=== PATIENT | male | born 1945 | race Caucasian/White ===

== ENCOUNTER → 2018-04-08 14:35 | Outpatient (CLI) | payer MEDICARE | END | disposition home or self-care (01) | LOC: D.CT 13:00 | DX: I71.4 Abdominal aortic aneurysm, without rupture (principal) ==

== ENCOUNTER → 2018-09-25 14:02 | Outpatient (CLI) | payer MEDICARE | END | disposition home or self-care (01) | LOC: D.CT 14:02 | PROVIDERS: ATTEND Internal Medicine Cardiovascular Disease | DX: I71.4 Abdominal aortic aneurysm, without rupture (principal) ==

== ENCOUNTER 2018-10-07 12:59 | Inpatient (IN) | payer MEDICARE ==
[~2018-10-07] VITALS: Ht 180.3 cm; Wt 86.2 kg
--- NOTE | ~2018-10-07 | OP ---
PATIENT NAME: CRISTINA HOOD MEDICAL RECORD: [id number] :47 LOCATION:D.CVI D.CV04 ADMISSION DATE:10/09/18 SURGEON: J CARLOS WANG MD DATE OF OPERATION: 10/09/2018 ADDENDUM Retrograde left external iliac artery was performed after the deployment of the iCAST stents with an excellent result. Attention was then turned towards the right common femoral, superficial femoral, and profunda femoral arteries. The artery was opened longitudinally and underwent endarterectomy sharply. Artery underwent extensive debridement and irrigation. Utilizing a CorMatrix vascular patch and running 5-0 Prolene suture, the arteriotomy was closed with an angioplasty technique. All maneuvers to remove trapped air were performed. The clamps removed sequentially and there was excellent flow distally. The wounds were irrigated with copious amounts of antibiotic solution and normal saline. The patient's final aortogram demonstrated good flow through the graft with no endoleak and good flow through the stents as well. The patient was then given a calculated dose of protamine to reverse the heparin, given as the first sheath was placed. Hemostasis was achieved. Wounds were irrigated with copious amounts of antibiotic solution and normal saline. Instrument count and sponge counts were correct times 2. Wound was closed in layers utilizing 2-0 Vicryl on deep subcutaneous tissue, 3-0 Vicryl on superficial subcutaneous tissue and skin approximated with 5-0 subcuticular Monocryl. Sterile dressings were applied. The patient tolerated the procedure well and was transferred to cardiovascular recovery in stable condition. TRANSINT:[id number] Voice Confirmation ID: [id number] DOCUMENT ID: [id number] J CARLOS WANG MD CC: [id number] DICTATION DATE: 10/09/18 1518 MONITORING AND EVALUATION ADVISOR: 10/09/18 1527 ADM IN [facility] [facility] [id number] [place] [address]
--- NOTE | ~2018-10-07 | OP ---
PATIENT NAME: CRISTINA HOOD MEDICAL RECORD: [id number] :46 LOCATION:D.CVI D.CV04 ADMISSION DATE:10/09/18 SURGEON: YIFAN WANG MD DATE OF OPERATION: 10/09/2018 SURGEON: Yifan Wang MD DRYWALL INSTALLER: Derek. ANESTHESIA: General endotracheal, Dr. Reyes. OPERATION PERFORMED: 1. Open exposure right common femoral and superficial profunda femoral arteries, 87844. 2. Open iliac exposure left, 66389. 3. Endovascular repair with deployment of an aortobiiliac graft, 72750. 4. Extension prosthesis, left iliac beyond the target zone, +80061. 5. Right common femoral, superficial femoral endarterectomy with patch angioplasty, 16837. PREOPERATIVE DIAGNOSIS: 1. Bilaterally with Peng stage III claudication. 2. Saccular abdominal aortic aneurysm. POSTOPERATIVE DIAGNOSIS: 1. 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 2. Stenosis of the right external iliac artery and common iliac artery. 3. Severe stenosis proximal takeoff of the superficial femoral artery. INDICATION FOR OPERATION: Severe atherosclerosis lower extremities with life limiting claudication and abdominal aortic aneurysm. Severe claudication of lower extremities bilaterally with saccular abdominal aortic aneurysm. FINDINGS OF THE OPERATION: 1. Saccular abdominal aortic aneurysm. 2. 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 3. Severe stenosis of the right external iliac artery and common iliac artery. 4. Severe stenosis takeoff of the superficial femoral artery. FLUOROSCOPY TIME: 14 minutes 58 seconds. CONTRAST: 90 cc. ESTIMATED BLOOD LOSS: Less than 150 cc. The endarterectomy patch was a CorMatrix. Dr. Reed participated in the entire procedure. He participated in exposure of the right common femoral artery, profunda femoral artery, and superficial femoral artery. He participated in exposure of the left external iliac artery and common femoral artery. He also participated in the cannulation and crossing of the left totally occluded external iliac artery. He participated in the deployment of the aortobiiliac stent as well as extension device on the left. He also participated in the right common femoral and superficial endarterectomy with patch angioplasty. After informed consent, adequate preoperative OPERATIVE REPORT [id number] CRISTINA HOOD medication evaluation, the patient was brought to the operating room, placed on the table in supine position. After induction of general endotracheal anesthesia and application of appropriate monitoring devices, the patient was prepped and draped in a sterile field, utilizing Betadine scrub, alcohol, and Betadine solution. Betadine-impregnated drape was also used. Attempts were made to access the left common femoral artery with ultrasound and percutaneous technique and this failed. Therefore, the left external iliac and common femoral artery were exposed and surrounded with vessel loops. Attention was then turned toward the right groin and a curvilinear incision was made over the femoral artery. Dissection carried down to the fascia. The external iliac artery, common femoral artery, profunda femoral artery, and superficial femoral arteries were dissected free of surrounding structures and encircled with vessel loops. The left external iliac artery was accessed with a micropuncture and a microwire placed in the external iliac artery followed by a 4-Kenyan sheath exchange was made for a 6-Kenyan sheath and an arteriogram performed demonstrated the chronic total occlusion of the left external iliac artery, which was chronic. The right common femoral artery was then incised longitudinally with the clamps and placement of a 7-Kenyan sheath. The right iliac and aorta were cannulated with a stiff wire. Attention was turned toward the left and using a 0.014 Regalia wire, the chronic total occlusion was crossed and exchange made for a stiff wire with 0.035 Quick-Cross. Exchange was made for a stiff wire and a 7 x 80 balloon was placed across the area of chronic total occlusion in the external iliac artery as well as the common iliac artery. On the right, a 4 x 40 balloon was placed. The balloons were inflated, and held for 1 minute. The right side required another inflation at the junction of the hypogastric and external iliac artery. A snare catheter was placed in the left external iliac artery and 0.035 Quick-Cross placed over the wire inside of the snare catheter. Snare catheter was then manipulated to the distal aorta and a snare placed through the guiding catheter. Attention was then turned towards the right. The endovascular graft was prepared. The Endologix aortobiiliac graft was then loaded on the wire. The contralateral wire was placed through this large introducer and snared the contralateral wire was pulled through the 7-Kenyan sheath on the left. The Endologix graft was then loaded on to the sheath and advanced into the aorta. The device was then settled on the bifurcation and the main body deployed. The contralateral side was then deployed and a pigtail catheter used to dislodge this contralateral wire and exchange made for a stiff wire. The right ipsilateral limb was then deployed. This required dilation with an 8 millimeter balloon and arteriogram was performed retrogradely on the left external iliac artery and the area was measured. Utilizing the cast stent system, a 9 x 38 balloon expandable stent was placed with a good secure result and 8 x 59 millimeter iCAST stent was then placed over the left 9 Kenyan. DICTATION ENDS HERE TRANSINT:[id number] Voice Confirmation ID: [id number] DOCUMENT ID: [id number] OPERATIVE REPORT [id number] CRISTINA HOOD EDWARD MD CC: [id number] DICTATION DATE: 10/09/18 1515 LIFE SKILLS COORDINATOR: 10/09/181912 ADM IN [facility] [address] [place] [address]
[2018-10-07] MEDS ORDERED: PACERONE200 MG PO (13:26)
[2018-10-07] MEDS ORDERED: HYDROCODONE-IB1 EAC3 PO (13:26)
[2018-10-07] MEDS ORDERED: LIPITOR20 MG PO (13:27)
[2018-10-07] MEDS ORDERED: ANORO ELLIPTA1 EACH INH (13:27)
[2018-10-07] MEDS ORDERED: COREG25 MG PO (13:27)
[2018-10-07] MEDS ORDERED: VOLTAREN75 MG PO (13:28)
[2018-10-07] MEDS ORDERED: PLAVIX75 MG PO (13:28)
[2018-10-07] MEDS ORDERED: LISINOPRIL40 MG PO (13:29)
[2018-10-07] MEDS ORDERED: NEXIUM40 MG PO (13:29)
[2018-10-07] MEDS ORDERED: HYSINGLA ER20 MG PO (13:29)
[2018-10-07] MEDS ORDERED: PULMICORT0.25 MG/1 INH (13:30)
[2018-10-07] MEDS ORDERED: TRULICITY0.75 MG/0. SC (13:30)
[2018-10-07] MEDS ORDERED: VENTOLIN HFA INH (13:31)
[2018-10-07] MEDS ORDERED: BAYER CHEWABLE81 MG PO (13:32)
[2018-10-07 14:58] LABS: APPEARANCE CLEAR (CLEAR); COLOR YELLOW (YELLOW); SPECIFIC GRAVITY 1.015 (1.005-1.020)
[2018-10-07 14:59] LABS: BASOPHILS 0.4 % (0-2); BILIRUBIN NEGATIVE (NEGATIVE); EOSINOPHILS 1.9 % (0-7); GLUCOSE NEGATIVE (NEGATIVE); HEMATOCRIT 43.1 % (42.0-54.0); HEMOGLOBIN 14.8 g/dL (13.5-17.5); IMMATURE GRANULOCYTES 0.4 % (0-5); KETONE NEGATIVE (NEGATIVE); LYMPHOCYTES 37.2 % (15-50); MCH 31.6 pg (26.0-34.0); MCHC 34.3 g/dL (31.0-37.0); MCV 92.1 fL (80.0-100.0); MEAN PLATELET VOLUME 10.6 fL (7.4-10.4); MONOCYTES 5.7 % (2-11); NEUTROPHILS 54.4 % (40-80); NITRITE NEGATIVE (NEGATIVE); PLATELET COUNT 224 10x3/uL (130-400); PROTEIN NEGATIVE (NEGATIVE); RBC 4.68 10x6/uL (4.20-6.10); RDW 13.4 % (11.5-14.5); UROBILINOGEN NORMAL (NORMAL); WBC 8.1 10x3/uL (4.8-10.8)
[2018-10-07 15:01] LABS: INR 1.04 (0.85-1.17); PROTIME 13.1 SECONDS (11.6-15.0)
[2018-10-07 15:02] LABS: APTT 33.8 SECONDS (22.8-39.4)
[2018-10-07 15:11] LABS: ALBUMIN 3.2 g/dL (3.4-5.0); ANION GAP 7.5 mmol/L (8-16); BILIRUBIN - TOTAL 0.23 mg/dL (0.2-1.3); CALCIUM 8.6 mg/dL (8.5-10.1); CARBON DIOXIDE 31.8 mmol/L (21.0-32.0); CREATININE - SERUM 1.4 mg/dL (0.6-1.3); POTASSIUM - SERUM 4.3 mmol/L (3.5-5.1); PROTEIN - SERUM 6.4 g/dL (6.4-8.2)
[2018-10-09] VITALS (31 sets, daily range): BP systolic 88–187; BP diastolic 37–82; Ht 180.3 cm; Wt 86.2 kg
[2018-10-09] MEDS ORDERED: HYDROCODON-ACE1 EAC7 PO (05:21)
[2018-10-10] VITALS (11 sets, daily range): BP systolic 95–137; BP diastolic 36–93
[2018-10-10 05:48] LABS: HEMATOCRIT 32.7 % (42.0-54.0); HEMOGLOBIN 10.9 g/dL (13.5-17.5); MCH 30.6 pg (26.0-34.0); MCHC 33.3 g/dL (31.0-37.0); MCV 91.9 fL (80.0-100.0); MEAN PLATELET VOLUME 10.6 fL (7.4-10.4); RBC 3.56 10x6/uL (4.20-6.10); RDW 13.2 % (11.5-14.5); WBC 10.8 10x3/uL (4.8-10.8)
[2018-10-10 06:00] LABS: ANION GAP 9.2 mmol/L (8-16); CALCIUM 7.9 mg/dL (8.5-10.1); CARBON DIOXIDE 29.5 mmol/L (21.0-32.0); CREATININE - SERUM 1.3 mg/dL (0.6-1.3); POTASSIUM - SERUM 4.7 mmol/L (3.5-5.1)
--- NOTE | 2018-10-10 08:45 | OP ---
PATIENT NAME: CRISTINA HOOD MEDICAL RECORD: [id number] :47 LOCATION:D.JAIMEI D.CV04 ADMISSION DATE:10/09/18 SURGEON: CASEY DELAROSA MD DATE OF OPERATION: 10/09/2018 SURGEONS: Casey Delarosa MD and TOBIAS Clay MD DESCRIPTION OF PROCEDURE: During and as an integral part of the operation performed by , the right common femoral and superficial femoral artery endarterectomy was performed. The plaque was amputated distally and intact and proximally it feathered well. Thorough irrigation was undertaken. Backbleeding from the profunda femoral artery was brisk. A CorMatrix patch was sutured along the edge of the arteriotomy and prior to completing the anastomosis, backbleeding was flushed from all 3 of the major vessels and again, thorough irrigation of the endarterectomy bed. Flow was restored with good Doppler signal and the wound was closed in 2 layers and with a subcuticular Dermabond. The patient had Doppler pedal pulses prior to returning to [facility] ICU. Additionally, I served as the assistant womens volleyball coach for the placement of the aortic endograft managing the right side with deployment of the main body, right limb, and the iliac angioplasty. Please refer to the other dictation by . TRANSINT:[id number] Voice Confirmation ID: [id number] DOCUMENT ID: [id number] CASEY DELAROSA MD at 0845 CC: [id number] DICTATION DATE: 10/09/181712 NUCLEAR WASTE MANAGEMENT ENGINEER: 10/09/182 ADM IN [place] [id number] [place] [address]
== END 2018-10-10 14:45 | disposition home or self-care (01) | DRG 269 ==
LOC: D.SDCHOLD 10-09 05:00 → D.CVICU 10-09 05:00 → D.SDCHOLD 10-09 07:30 → D.CVICU 10-09 12:39
PROVIDERS: ADMIT Internal Medicine Cardiovascular Disease; ATTEND Internal Medicine Cardiovascular Disease
PROC: 04V03DZ Restriction of Abdominal Aorta with Intraluminal Device, Percutaneous Approach (ICD-10-PCS; 2018-10-09)
PROC: 04UK0JZ Supplement Right Femoral Artery with Synthetic Substitute, Open Approach (ICD-10-PCS; 2018-10-09)
PROC: 04VJ3DZ Restriction of Left External Iliac Artery with Intraluminal Device, Percutaneous Approach (ICD-10-PCS; 2018-10-09)
PROC: 04CK0ZZ Extirpation of Matter from Right Femoral Artery, Open Approach (ICD-10-PCS; principal; 2018-10-09 07:30)
DX: I71.4 Abdominal aortic aneurysm, without rupture (principal); I70.92 Chronic total occlusion of artery of the extremities; I10 Essential (primary) hypertension; E78.5 Hyperlipidemia, unspecified; I25.10 Atherosclerotic heart disease of native coronary artery without angina pectoris

== ENCOUNTER → 2019-09-23 09:19 | Outpatient (CLI) | payer MEDICARE ==
[2018-10-09 12:52] VITALS: BMI 26.5
[~2019-09-23 09:19] MED LIST: ANORO ELLIPTA1 EACH INH; BAYER CHEWABLE81 MG PO; COREG25 MG PO; HYDROCODON-ACE1 EAC7 PO; HYDROCODONE-IB1 EAC3 PO; HYSINGLA ER20 MG PO; LIPITOR20 MG PO; LISINOPRIL40 MG PO; NEXIUM40 MG PO; PACERONE200 MG PO; PLAVIX75 MG PO; PULMICORT0.25 MG/1 INH; TRULICITY0.75 MG/0. SC; VENTOLIN HFA INH; VOLTAREN75 MG PO
== END | disposition home or self-care (01) ==
LOC: D.CT 09:19
PROVIDERS: ATTEND Internal Medicine Cardiovascular Disease
DX: I71.4 Abdominal aortic aneurysm, without rupture (principal)

== ENCOUNTER → 2019-11-02 09:32 | Outpatient (CLI) | payer MEDICARE ==
[2018-10-09 12:52] VITALS: BMI 26.5
== END | disposition home or self-care (01) ==
LOC: D.US 09:32
PROVIDERS: ATTEND Internal Medicine Cardiovascular Disease
DX: I70.202 Unspecified atherosclerosis of native arteries of extremities, left leg (principal); I70.291 Other atherosclerosis of native arteries of extremities, right leg

== ENCOUNTER → 2019-12-10 09:02 | Outpatient (CLI) | payer MEDICARE ==
[2018-10-09 12:52] VITALS: BMI 26.5
== END | disposition home or self-care (01) ==
LOC: D.CT 11-09 13:00
PROVIDERS: ATTEND Internal Medicine Cardiovascular Disease
DX: I70.90 Unspecified atherosclerosis (principal)